=== PATIENT | female | born 1950 | race Two or more races ===

== ENCOUNTER 2022-11-06 20:48 | Emergency (ER) | payer MEDICARE, OTHER ==
[~2022-11-06] VITALS: Ht 165.1 cm; Wt 72.6 kg
--- NOTE | 2022-11-06 21:00 | NUR ---
[id number] FROM HOME FOR WORSENING LOW BACK PAIN X2WKS. PT IS ALERT AND ORIENTED. RR EVEN AND NON LABORED. CONNECTED TO MONITOR. FAMILY AT BEDSIDE
[2022-11-06] MEDS ORDERED: CYCL10TA9 PO (22:53)
[2022-11-06] MEDS ORDERED: OXYC-128 PO (22:53)
[2022-11-06] MEDS ORDERED: CYCLOBENZAPRINE 10 MG TABLET ONE (22:59)
[2022-11-06] MEDS ORDERED: MORPHINE SULFATE INJ 4 MG/ML DISP.SYRIN ONE (22:59)
[2022-11-06] MEDS ORDERED: CYCLOBENZAPRINE 10 MG TABLET PO ONE (23:00)
[2022-11-06] MEDS ORDERED: MORPHINE SULFATE INJ 2 MG/ML DISP.SYRIN IM ONE (23:00)
--- NOTE | 2022-11-06 23:13 | NUR ---
Patient discharged to home in stable condition. Written and verbal after care instructions given. Patient verbalizes understanding of instruction.
[2022-11-06 23:14] VITALS: BP 141/72
== END 2022-11-06 23:15 | disposition home or self-care (01) ==
LOC: ER 20:49
DX: M54.50 Low back pain, unspecified (principal); I10 Essential (primary) hypertension; Z98.890 Other specified postprocedural states
CPT/HCPCS: 99283; 96372; J2270

== ENCOUNTER 2023-09-23 17:08 | Emergency (ER) | payer MEDICARE, OTHER ==
[~2023-09-23] VITALS: Ht 160 cm; Wt 90.7 kg
[~2023-09-23 17:08] MED LIST: CYCL10TA9 PO; OXYC-128 PO
[2023-09-23] MEDS ORDERED: MORPHINE SULFATE INJ 2 MG/ML DISP.SYRIN ONE (18:47)
[2023-09-23] MEDS ORDERED: CYCLOBENZAPRINE 10 MG TABLET ONE (18:47)
[2023-09-23] MEDS: MORPHINE SULFATE INJ 4 MG/ML DISP.SYRIN IM ONE (18:52)
[2023-09-23] MEDS: CYCLOBENZAPRINE 10 MG TABLET PO ONE (18:52)
[2023-09-23] MEDS ORDERED: OXYC-133 PO (19:30)
[2023-09-23 19:58] VITALS: BP 153/80; TEMP 98.3; O2SAT 99
== END 2023-09-23 19:58 | disposition home or self-care (01) ==
LOC: ER 17:10
DX: M54.50 Low back pain, unspecified (principal); I10 Essential (primary) hypertension
CPT/HCPCS: 99285; 72131; 96372; J2270

== ENCOUNTER 2023-10-25 18:16 | Emergency (ER) | payer MEDICARE, OTHER ==
[~2023-10-25] VITALS: Ht 167.6 cm; Wt 93.4 kg
[~2023-10-25 18:16] MED LIST changes: +OXYC-133 PO
[2023-10-25 18:23] VITALS: TEMP 98.1
[2023-10-25] MEDS ORDERED: MORPHINE SULFATE INJ 2 MG/ML DISP.SYRIN ONE (19:16)
[2023-10-25] MEDS ORDERED: ONDANSETRON HCL/PF 4 MG/2 ML VIAL ONE ×2 (19:16→21:37)
[2023-10-25] MEDS ORDERED: FAMOTIDINE/PF INJ 20 MG/2 ML VIAL IV ONE (19:17)
[2023-10-25] MEDS: IV NS 0.9% 500 ML BAG IV ONE (19:24)
[2023-10-25] MEDS: FAMOTIDINE/PF INJ 20 MG/2 ML VIAL IV ONE (19:26)
[2023-10-25] MEDS: ONDANSETRON HCL/PF 4 MG/2 ML VIAL IVP ONE (19:26)
[2023-10-25] MEDS: MORPHINE SULFATE INJ 2 MG/ML DISP.SYRIN IV ONE (19:28)
[2023-10-25 19:29] LABS: BASOPHILS % (AUTO) 0.3 % (0.0-2.0); EOSINOPHILS % (AUTO) 0.1 % (0.0-6.0); HEMATOCRIT 36 % (33-45); HEMOGLOBIN 11.6 g/dL (11.5-14.8); LYMPHOCYTES # (AUTO) 0.6 K/uL (0.8-4.8); LYMPHOCYTES % (AUTO) 6.2 % (20.0-44.0); MEAN CORPUSCULAR HEMOGLOBIN 29 PG (26.0-33.0); MEAN CORPUSCULAR HGB CONC 32 g/dl (31.0-36.0); MEAN CORPUSCULAR VOLUME 91 fL (82-100); MONOCYTES # (AUTO) 0.5 K/uL (0.1-1.30); MONOCYTES % (AUTO) 5.6 % (2.0-12.0); NEUTROPHILS # (AUTO) 8.3 K/uL (1.8-8.9); NEUTROPHILS % (AUTO) 87.8 % (43.0-81.0); PLATELET COUNT (AUTO) 213 K/uL (150-450); RED BLOOD CELL COUNT(AUTO) 3.99 MIL/uL (4.0-5.2); RED CELL DISTRIBUTION WIDTH 16.5 % (11.5-15.0); WHITE BLOOD COUNT (AUTO) 9.5 K/uL (4.3-11.0)
[2023-10-25 19:45] LABS: ALANINE AMINOTRANSFERASE 28 U/L (12-78); ALBUMIN 2.9 g/dL (3.4-5.0); ALKALINE PHOSPHATASE 77 U/L (46-116); ASPARTATE AMINOTRANSFERASE 18 U/L (15-37); BILIRUBIN,DIRECT 0.1 mg/dL (0.0-0.2); BILIRUBIN,TOTAL 0.5 mg/dL (0.2-1.0); CALCIUM, SERUM 9.2 mg/dL (8.5-10.1); CARBON DIOXIDE 25 mmol/L (21-32); CHLORIDE 99 mmol/L (98-107); CREATININE 1.3 mg/dL (0.6-1.3); GLUCOSE 117 mg/dL (74-106); LIPASE 13 U/L (16-77); POTASSIUM 4.5 mmol/L (3.5-5.1); SODIUM SERUM 134 mmol/L (136-145); UREA NITROGEN, BLOOD 20 mg/dL (7-18)
[2023-10-25 20:57] LABS: APPEARANCE,URINE CLEAR (CLEAR); BILIRUBIN,URINE NEGATIVE (NEGATIVE); BLOOD, URINE NEGATIVE Ery/uL (NEGATIVE); COLOR,URINE YELLOW (YELLOW); KETONES,URINE NEGATIVE (NEGATIVE); LEUKOCYTE ESTERASE ,URINE 2+ (NEGATIVE); NITRITE, URINE NEGATIVE (NEGATIVE); PROTEIN,URINE TRACE mg/dl (NEGATIVE); UGLUCOSE NEGATIVE (NEGATIVE); UROBILINOGEN,URINE 0.2 EU/dL (0.2)
[2023-10-25 21:04] LABS: ADD URINE CULTURE YES; BACTERIA,URINE 1+ /HPF (None Seen); RBC,URINE 0-2 /HPF (0-2); WBC,URINE 21-50 /HPF (0-3)
[2023-10-25] MEDS ORDERED: ONDA4TAB5 PO (21:33)
[2023-10-25] MEDS: ONDANSETRON HCL/PF - ER 4 MG/2 ML VIAL IV ONE (21:38)
[2023-10-25 22:24] VITALS: BP 158/81; O2SAT 97
== END 2023-10-25 22:25 | disposition home or self-care (01) ==
LOC: ER 18:30
DX: M54.50 Low back pain, unspecified (principal); R11.2 Nausea with vomiting, unspecified; I10 Essential (primary) hypertension
CPT/HCPCS: 99285; 74176; 96374; 96375; 93005; 96376; 85025; 80048; 87086; 83690; 80076; 81001; 36415; 84484; J3490; J2405 ×3; J7040; J2270

== ENCOUNTER 2024-02-19 15:03 | Emergency (ER) | payer MEDICARE, OTHER ==
[~2024-02-19] VITALS: Ht 165.1 cm; Wt 93.0 kg
[~2024-02-19 15:03] MED LIST changes: +ONDA4TAB5 PO
[2024-02-19] MEDS ORDERED: KETOROLAC TROMETHAMINE 15 MG/ML VIAL ONE (15:47)
[2024-02-19] MEDS ORDERED: dexaMETHasone SOD PHOSPHATE 1 ML ONE (15:47)
[2024-02-19] MEDS ORDERED: LIDOCAINE 5% (PATCH) 1 EA PATCH TP ONE (15:48)
[2024-02-19] MEDS ORDERED: ACETAMINOPHEN 325 MG TABLET ONE (15:48)
[2024-02-19] MEDS ORDERED: MORPHINE SULFATE INJ 4 MG/ML DISP.SYRIN ONE (15:48)
[2024-02-19] MEDS: LIDOCAINE 5% (PATCH) 1 EA PATCH TP STA (16:10)
[2024-02-19] MEDS: dexaMETHasone SOD PHOSPHATE 10 MG/ML VIAL IV ONE (16:10)
[2024-02-19] MEDS: MORPHINE SULFATE INJ 2 MG/ML DISP.SYRIN IV ONE (16:10)
[2024-02-19] MEDS: KETOROLAC TROMETHAMINE 15 MG/ML VIAL IV ONE (16:11)
[2024-02-19] MEDS: ACETAMINOPHEN 325 MG TABLET PO ONE (16:11)
[2024-02-19] MEDS ORDERED: CYCL5TAB PO (18:03)
[2024-02-19] MEDS ORDERED: METH4TAB17 PO (18:03)
[2024-02-19] MEDS ORDERED: HYDR-4303 PO (18:03)
[2024-02-19] MEDS ORDERED: LIDO30AD10 TP (18:03)
[2024-02-19] MEDS ORDERED: IBUP-1955 PO (18:03)
[2024-02-19 18:09] VITALS: BP 135/60; TEMP 98.4; O2SAT 96
== END 2024-02-19 18:10 | disposition home or self-care (01) ==
LOC: ER 15:55
DX: M54.59 Other low back pain (principal); I10 Essential (primary) hypertension; Z86.79 Personal history of other diseases of the circulatory system; Z87.39 Personal history of other diseases of the musculoskeletal system and connective tissue
CPT/HCPCS: 99284; 96374; 96375 ×2; J1100; J2270; J1885

== ENCOUNTER 2025-07-07 10:56 | Inpatient (IN) | payer MEDICARE, OTHER ==
[~2025-07-07] VITALS: Ht 160 cm; Wt 97.5 kg
[~2025-07-07 10:56] MED LIST changes: +CYCL5TAB PO; +HYDR-4303 PO; +IBUP-1955 PO; +LIDO30AD10 TP; +METH4TAB17 PO
[2025-07-07] MEDS ORDERED: ACETAMINOPHEN ES 500 MG TABLET ONE (11:27)
[2025-07-07] MEDS: IV LR 1000 ML 1,000 ML BAG IV ONE (11:30)
[2025-07-07] MEDS: CEFEPIME 1 GM in IV D5W 50 ML IV ONE (11:35)
[2025-07-07] MEDS: ACETAMINOPHEN 325 MG TABLET PO ONE (11:35)
[2025-07-07 11:43] LABS: PLATELET COUNT (AUTO) 202 K/uL (150-450); RED BLOOD CELL COUNT(AUTO) 3.37 MIL/uL (4.0-5.2); RED CELL DISTRIBUTION WIDTH 15.8 % (11.5-15.0); WHITE BLOOD COUNT (AUTO) 8.8 K/uL (4.3-11.0)
[2025-07-07 11:52] LABS: CALCIUM, SERUM 8.9 mg/dL (8.5-10.1); CREATININE 1.5 mg/dL (0.6-1.3); SODIUM SERUM 139.0 mmol/L (136-145); UREA NITROGEN, BLOOD 13.0 mg/dL (7-18)
[2025-07-07 11:55] LABS: INR 1.02 (0.91-1.10)
[2025-07-07 11:58] LABS: ASPARTATE AMINOTRANSFERASE 20.0 U/L (15-37); TOTAL PROTEIN, SERUM 6.6 g/dL (6.4-8.2)
[2025-07-07 12:00] LABS: LACTIC ACID 1.9 mmol/L (0.4-2.0)
[2025-07-07 12:28] LABS: APPEARANCE,URINE CLEAR (CLEAR); BLOOD, URINE Negative Ery/uL (NEGATIVE); LEUKOCYTE ESTERASE ,URINE Small (NEGATIVE); NITRITE, URINE NEGATIVE (NEGATIVE); UGLUCOSE >=1000 mg/dL (NEGATIVE)
[2025-07-07] MEDS: IV LR 1000 ML 1,000 ML IV ONE (12:30)
[2025-07-07 12:39] LABS: ADD URINE CULTURE YES; SQUAMOUS EPITHELIAL CELL,UR 0-2 /HPF (None Seen)
[2025-07-07] MEDS ORDERED: FOLI0.4T6 PO (13:36)
[2025-07-07] MEDS ORDERED: CARV25TA2 PO (13:36)
[2025-07-07] MEDS ORDERED: FERR325T24 PO (13:36)
[2025-07-07] MEDS ORDERED: FURO40TA5 PO (13:36)
[2025-07-07] MEDS ORDERED: CHOL200059 PO (13:36)
[2025-07-07] MEDS ORDERED: CYCL25CA6 PO (13:36)
[2025-07-07] MEDS ORDERED: ALPR0.5T8 PO (13:36)
[2025-07-07] MEDS ORDERED: DOXA4TAB3 PO (13:36)
[2025-07-07] MEDS ORDERED: HYDR-4076 PO (13:36)
[2025-07-07] MEDS ORDERED: LOSA100T31 PO (13:36)
[2025-07-07] MEDS ORDERED: AMLO-213 PO (13:36)
[2025-07-07] MEDS ORDERED: LANS30CA56 PO (13:36)
[2025-07-07] MEDS ORDERED: MAGN400T52 PO (13:36)
[2025-07-07] MEDS ORDERED: AMIO200T7 PO (13:36)
[2025-07-07] MEDS ORDERED: CLON0.1T PO (13:36)
[2025-07-07] MEDS ORDERED: CALC0.253 PO (13:36)
[2025-07-07] MEDS ORDERED: Z GUARD REMEDY 4 OZ OINT TP PRN (14:00)
[2025-07-07] MEDS ORDERED: ALPRAZOLAM 0.5 MG TABLET PO PRN (14:00)
[2025-07-07] MEDS ORDERED: DOSING PER PHARMACY-CEFEPIME IVPB XX PRN (14:00)
[2025-07-07] MEDS ORDERED: MAGNESIUM HYDROXIDE 30 ML UDC PO PRN (14:00)
[2025-07-07] MEDS ORDERED: ONDANSETRON HCL/PF 4 MG/2 ML VIAL IVP PRN (14:00)
[2025-07-07] MEDS: AZITHROMYCIN 500 MG in IV D5W 250 ML IV SCH (15:48)
[2025-07-07 16:00] VITALS: BP 113/68; TEMP 97.7; O2SAT 96
[2025-07-07] MEDS ORDERED: PROP40TA7 PO (16:54)
[2025-07-07] MEDS ORDERED: ROSU20TA2 PO (16:54)
[2025-07-07] MEDS ORDERED: TEMA15CA PO (16:54)
[2025-07-07] MEDS ORDERED: NITR100C PO (16:54)
[2025-07-07] MEDS ORDERED: DENO60DI SQ (16:54)
[2025-07-07] MEDS ORDERED: MYCO500T5 PO (16:54)
[2025-07-07] MEDS ORDERED: ICOS1CAP PO (16:54)
[2025-07-07] MEDS ORDERED: POTA15TA11 PO (16:54)
[2025-07-07] MEDS: CARVEDILOL 12.5 MG TABLET PO SCH (17:00)
[2025-07-07] MEDS: ACETAMINOPHEN 325 MG TABLET PO PRN (19:25)
[2025-07-07 20:00] VITALS: BP 120/60; TEMP 100.2; O2SAT 95
[2025-07-07] MEDS: HEPARIN SODIUM, PORCINE 5000 UNITS/1 ML VIAL SQ SCH (21:17)
[2025-07-07] MEDS: IV NS 0.9% 1,000 ML IV PRN (21:42)
[2025-07-07] MEDS: ZOLPIDEM TARTRATE 5 MG TABLET PO PRN (23:46)
[2025-07-08] VITALS: BP 155/61; TEMP 99.5; O2SAT 94
[2025-07-08 04:00] VITALS: BP 136/54; TEMP 99.1; O2SAT 99
[2025-07-08 07:17] LABS: PLATELET COUNT (AUTO) 182 K/uL (150-450); RED BLOOD CELL COUNT(AUTO) 3.08 MIL/uL (4.0-5.2); RED CELL DISTRIBUTION WIDTH 15.6 % (11.5-15.0); WHITE BLOOD COUNT (AUTO) 7.8 K/uL (4.3-11.0)
[2025-07-08 07:32] LABS: CALCIUM, SERUM 8.3 mg/dL (8.5-10.1); CREATININE 1.3 mg/dL (0.6-1.3); PHOSPHORUS 3.3 mg/dL (2.5-4.9); SODIUM SERUM 140.0 mmol/L (136-145); UREA NITROGEN, BLOOD 13.0 mg/dL (7-18)
[2025-07-08] MEDS: CHOLECALCIFEROL 1,000 UNIT TABLET (VIT D3) PO SCH (08:37)
[2025-07-08] MEDS: DOXAZOSIN MESYLATE (4 MG) 4 MG TABLET PO SCH (08:39)
[2025-07-08] MEDS: ATORVASTATIN 10 MG TABLET PO SCH (08:39)
[2025-07-08] MEDS: PANTOPRAZOLE 40 MG TABLET.DR PO SCH (08:40)
[2025-07-08] MEDS: MAGNESIUM OXIDE 400 MG TABLET PO SCH (08:40)
[2025-07-08] MEDS: FERROUS SULFATE (325 MG) 325 MG/TAB TABLET PO SCH (08:40)
[2025-07-08] MEDS: MYCOPHENOLATE MOFETIL 250 MG CAPSULE PO SCH (08:41)
[2025-07-08] MEDS: FOLIC ACID 1 MG TABLET PO SCH (08:41)
[2025-07-08] MEDS: CLONIDINE HCL 0.1 MG TABLET PO SCH (09:00)
[2025-07-08] MEDS: AMIODARONE HCL 200 MG TABLET PO SCH (09:00)
[2025-07-08] MEDS: AMLODIPINE BESYLATE 10 MG TABLET PO SCH (09:00)
[2025-07-08] MEDS ORDERED: POTASSIUM CHLORIDE 20 MEQ TAB.PRT.SR PO ONE (11:00)
[2025-07-08] MEDS: CEFEPIME 2 GM in IV D5W 100 ML IV SCH (11:45)
[2025-07-08] MEDS: POTASSIUM CHLORIDE 20 MEQ TAB.PRT.SR PO SCH (11:45)
[2025-07-08 16:00] VITALS: BP 99/54; TEMP 98.2; O2SAT 95
[2025-07-08] MEDS: TEMAZEPAM 15 MG CAPSULE PO SCH (17:50)
[2025-07-08 20:00] VITALS: BP 129/97; TEMP 98.1; O2SAT 97
[2025-07-09] VITALS: BP 144/81; TEMP 98.1; O2SAT 97
[2025-07-09] MEDS: MAG HYDROX/AL HYDROX/SIMETH 30 ML UDC PO PRN (00:15)
[2025-07-09 05:00] VITALS: BP 126/57; TEMP 97.8; O2SAT 94
[2025-07-09 06:43] LABS: PLATELET COUNT (AUTO) 188 K/uL (150-450); RED BLOOD CELL COUNT(AUTO) 3.13 MIL/uL (4.0-5.2); RED CELL DISTRIBUTION WIDTH 15.9 % (11.5-15.0); WHITE BLOOD COUNT (AUTO) 5.9 K/uL (4.3-11.0)
[2025-07-09 07:09] LABS: CALCIUM, SERUM 8.9 mg/dL (8.5-10.1); CREATININE 1.2 mg/dL (0.6-1.3); PHOSPHORUS 3.2 mg/dL (2.5-4.9); SODIUM SERUM 145.0 mmol/L (136-145); UREA NITROGEN, BLOOD 15.0 mg/dL (7-18)
[2025-07-09 08:00] VITALS: BP 137/53; TEMP 98.6; O2SAT 95
[2025-07-09] MEDS: LOSARTAN POTASSIUM 50 MG TABLET PO SCH (09:00)
[2025-07-09] MEDS: CALCITRIOL 0.25 MCG CAPSULE PO SCH (09:07)
[2025-07-09] MEDS: FUROSEMIDE 40 MG TABLET PO SCH (09:09)
[2025-07-09 10:23] LABS: EOSINOPHILS % (MANUAL) 2 % (0-4); LYMPHOCYTES % (MANUAL) 7 % (16-48); MONOCYTES % (MANUAL) 4 % (0-11.0); NEUTROPHILS % (MANUAL) 87 (42-76)
[2025-07-09 10:24] LABS: PLATELET ESTIMATE ADEQUATE
[2025-07-09 11:30] VITALS: BP 145/55; TEMP 97.9; O2SAT 96
[2025-07-09 16:00] VITALS: BP 150/58; TEMP 97.9; O2SAT 98
[2025-07-09 20:00] VITALS: BP 127/58; TEMP 98.1; O2SAT 97
[2025-07-09] MEDS: CEFTRIAXONE 1 G in IV D5W 50 ML IV SCH (21:18)
[2025-07-10] VITALS: BP 154/70; TEMP 97.7; O2SAT 98
[2025-07-10 04:00] VITALS: BP 130/63; TEMP 98.4; O2SAT 95
[2025-07-10 07:00] LABS: PLATELET COUNT (AUTO) 225 K/uL (150-450); RED BLOOD CELL COUNT(AUTO) 3.18 MIL/uL (4.0-5.2); RED CELL DISTRIBUTION WIDTH 15.5 % (11.5-15.0); WHITE BLOOD COUNT (AUTO) 5.8 K/uL (4.3-11.0)
[2025-07-10 07:11] LABS: CREATINE KINASE, TOTAL 44.0 U/L (26-192)
[2025-07-10 07:18] LABS: ASPARTATE AMINOTRANSFERASE 21.0 U/L (15-37); CALCIUM, SERUM 8.9 mg/dL (8.5-10.1); CREATININE 1.1 mg/dL (0.6-1.3); PHOSPHORUS 2.9 mg/dL (2.5-4.9); SODIUM SERUM 144.0 mmol/L (136-145); TOTAL PROTEIN, SERUM 6.4 g/dL (6.4-8.2); UREA NITROGEN, BLOOD 18.0 mg/dL (7-18)
[2025-07-10 08:00] VITALS: BP 117/82; TEMP 98.4; O2SAT 98
[2025-07-10] MEDS ORDERED: PRED5TAB PO (11:07)
[2025-07-10] MEDS ORDERED: CEPH-570 PO (11:07)
[2025-07-10 11:30] VITALS: BP 132/89; TEMP 98.4; O2SAT 98
[2025-07-10] MEDS ORDERED: AZITHROMYCIN 250 MG TABLET PO SCH (14:00)
[2025-07-10 16:17] LABS: EOSINOPHILS % (MANUAL) 2 % (0-4); LYMPHOCYTES % (MANUAL) 17 % (16-48); MONOCYTES % (MANUAL) 10 % (0-11.0); NEUTROPHILS % (MANUAL) 71 (42-76); PLATELET ESTIMATE ADEQUATE
[2025-07-11 10:09] LABS: PTH, INTACT 70 pg/mL (15-65)
== END 2025-07-10 13:25 | disposition home health service (06) | DRG 871 ==
LOC: ER 11:08 → MED 14:10 → TELE 21:59
PROVIDERS: ADMIT Student in an Organized Health Care Education/Training Program; ATTEND Student in an Organized Health Care Education/Training Program
DX: A41.9 Sepsis, unspecified organism (principal); N17.0 Acute kidney failure with tubular necrosis; N18.6 End stage renal disease; E44.0 Moderate protein-calorie malnutrition; D84.821 Immunodeficiency due to drugs; I12.0 Hypertensive chronic kidney disease with stage 5 chronic kidney disease or end stage renal disease; N39.0 Urinary tract infection, site not specified; T86.12 Kidney transplant failure; Z20.822 Contact with and (suspected) exposure to COVID-19; M19.90 Unspecified osteoarthritis, unspecified site; D64.9 Anemia, unspecified; E78.5 Hyperlipidemia, unspecified; Y83.9 Surgical procedure, unspecified as the cause of abnormal reaction of the patient, or of later complication, without mention of misadventure at the time of the procedure; Y92.099 Unspecified place in other non-institutional residence as the place of occurrence of the external cause; Z87.440 Personal history of urinary (tract) infections; Z79.899 Other long term (current) drug therapy; Z79.60 Long term (current) use of unspecified immunomodulators and immunosuppressants; E87.6 Hypokalemia; E66.9 Obesity, unspecified; Z68.38 Body mass index [BMI] 38.0-38.9, adult; M89.8X9 Other specified disorders of bone, unspecified site; B96.1 Klebsiella pneumoniae [K. pneumoniae] as the cause of diseases classified elsewhere
CPT/HCPCS: 36415; 71045-TC; 76770-TC; 80048-TC; 80053-TC; 80076-TC; 81001; 82550-TC; 83605-TC; 83735-TC; 83970; 84100-TC; 84155; 84165; 85025-TC; 85027-TC; 85730-TC; 87040-TC; 87086-TC; 87186-TC; A4223; G0378; J0456; J0692; J0696; J1644; J7030; J7060; J7120; J7512; J7515; J7517